=== PATIENT | female | born 1985 | race Caucasian/White ===

== ENCOUNTER → 2021-05-17 | Outpatient (CLI) | payer OTHER ==
--- NOTE | 2021-05-17 12:19 | MR ---
EXAMINATION TYPE: MR knee RT wo con DATE OF EXAM: 05/17/2021 COMPARISON: Outside right knee x-ray April 26, 2021 HISTORY: RIGHT KNEE PAIN inner aspect with swelling for months per patient TECHNIQUE: Multiplanar, multisequence imaging of the right knee is performed without IV contrast. FINDINGS: Exam slightly suboptimal as patient unable to hold still. MEDIAL MENISCUS: Horizontal signal posterior aspect posterior horn does not extend to articular surfa ce. LATERAL MENISCUS: Anterior and posterior horns are intact without tear. CRUCIATE LIGAMENTS: The anterior and posterior cruciate ligaments are intact and unremarkable. COLLATERAL LIGAMENTS: The medial collateral ligament and lateral collateral ligament complex are inta ct and unremarkable. EXTENSOR MECHANISM: Visualized quadriceps and patellar tendons are intact. EFFUSION: No significant suprapatellar joint effusion. POPLITEAL CYST: No popliteal/richard cyst. TRICOMPARTMENT SPACES: Tricompartment joint spaces are maintained. No significant spurring. CARTILAGE: The tricompartmental articular cartilage is preserved. BONE MARROW SIGNAL: Heterogeneity consistent with red marrow reconversion. No suspicious focal edema. OTHER: No additional significant abnormality is appreciated. IMPRESSION: Possible horizontal intrasubstance tear posterior aspect posterior horn medial meniscus. No full-thickness meniscal or ligamentous tear.
== END | disposition home or self-care (01) ==
LOC: RADMRIMAIN 10:52
PROVIDERS: ATTEND Orthopaedic Surgery
DX: M25.561 Pain in right knee (principal); M79.89 Other specified soft tissue disorders

== ENCOUNTER → 2021-07-05 | Outpatient (CLI) | payer OTHER ==
[2021-07-05 10:01] LABS: Basophils # (A) 0.1 k/uL (0-0.2); Basophils % (A) 1 %; Eosinophils # (A) 0.2 k/uL (0-0.7); Eosinophils % (A) 2 %; HCT 45.3 % (34.0-46.0); HGB 15.4 gm/dL (11.4-16.0); Lymphocytes # (A) 2.4 k/uL (1.0-4.8); Lymphocytes % (A) 29 %; MCH 31.1 pg (25.0-35.0); MCV 91.3 fL (80.0-100.0); Mean Platelet Volume 9.3; Monocytes # (A) 0.5 k/uL (0-1.0); Monocytes % (A) 6 %; Neutrophils # (A) 5.1 k/uL (1.3-7.7); Neutrophils % (A) 61 %; Platelet Count 197 k/uL (150-450); RBC 4.97 m/uL (3.80-5.40); RDW 12.2 % (11.5-15.5); WBC 8.4 k/uL (3.8-10.6)
[2021-07-05 10:08] LABS: Potassium 4.3 mmol/L (3.5-5.1)
== END | disposition home or self-care (01) ==
LOC: LABPAT 09:05
PROVIDERS: ATTEND Orthopaedic Surgery
DX: Z01.812 Encounter for preprocedural laboratory examination (principal); M23.91 Unspecified internal derangement of right knee
CPT/HCPCS: 80051; 81025; 85025

== ENCOUNTER 2021-07-14 14:28 | Day surgery (SDC) | payer OTHER ==
[2021-07-12 11:50] VITALS: BMI 29.2
--- NOTE | 2021-07-13 17:49 | HP ---
HISTORY AND PHYSICAL DATE OF SURGERY: 07/14/2021 Paulina Gibbs is a 36-year-old patient seen with progressive right knee pain. We discussed options for treatment. She elected to proceed with right knee arthroscopy. Consent was obtained. PAST MEDICAL HISTORY: Anxiety. PAST SURGICAL HISTORY: Left knee arthroscopy. DAILY MEDICATIONS: Motrin. ALLERGIES: NONE. SOCIAL HISTORY: She smokes half a pack of cigarettes daily. PHYSICAL EVALUATION OF THE RIGHT KNEE: Range of motion is negative 2/3 to 115. Mild effusion. Tenderness, medial joint line. Positive medial Buck's. Ligaments stable. Hip rotation without pain. Distal neurovascular exam intact. Right knee radiographs revealed mild osteoarthritis. MRI right knee revealed medial meniscal tear. IMPRESSION: Internal derangement of right knee with medial meniscal tear. PLAN: Right knee arthroscopy with partial meniscectomy and debridement. MMVAHE / IRAN: [id number] /
[~2021-07-14 14:28] MED LIST: DEXAMETHASONE SOD PHOSPHATE 4 MG/ML 1 ML VIAL IV ONE; KETOROLAC 15 MG/ML 1 ML VIAL IVP SCH; LACTATED RINGERS 1,000 ML IV SCH; LIDOCAINE 1% (10MG/ML) FOR IV START INTRADERMA PRN; METOCLOPRAMIDE 5 MG/ML 2 ML VIAL IVP PRN; MIDAZOLAM 2 MG/2 ML VIAL IV PRN; ONDANSETRON 4 MG/2 ML VIAL IVP ONE; SCOPOLAMINE 1.5MG/72HR PATCH TRANSDERM ONE
[2021-07-14] MEDS ORDERED: LACTATED RINGERS 1,000 ML IV ONE (14:59)
[2021-07-14] MEDS ORDERED: .fentaNYL (PF) 50 MCG/ML 2 ML AMP ONE (16:37)
[2021-07-14] MEDS ORDERED: MIDAZOLAM 2 MG/2 ML VIAL ONE (16:37)
[2021-07-14] MEDS ORDERED: PROPOFOL 10 MG/ML 20 ML VIAL IV ONE (16:37)
[2021-07-14] MEDS ORDERED: KETOROLAC 15 MG/ML 1 ML VIAL ONE (16:37)
[2021-07-14] MEDS ORDERED: HYDROmorphone (PF) 1 MG/ML ONE (16:37)
[2021-07-14] MEDS ORDERED: LIDOCAINE 1% INJ 10MG/ML (20 ML MDV) ONE (16:37)
[2021-07-14] MEDS ORDERED: BUPIVACAINE (PF) 0.25% 30 ML VIAL INTRAARTIC ONE ×2 (16:55→17:05)
[2021-07-14 17:19] VITALS: RESP 16; TEMP 96.8
--- NOTE | 2021-07-14 17:20 | P.OP ---
Date of Procedure: 07/14/21 Preoperative Diagnosis: Internal derangement right knee Postoperative Diagnosis: 1. Tear medial meniscus right knee 2. Reactive synovitis medial, lateral and suprapatellar compartments right knee Procedure(s) Performed: 1. Arthroscopic partial medial meniscectomy right knee 2. Arthroscopic partial synovectomy medial, lateral and suprapatellar compartments right knee Anesthesia: VIDALA, local Surgeon: Alexander Canchola Estimated Blood Loss (ml): 5 Pathology: none sent Condition: stable Disposition: PACU Indications for Procedure: 36-year-old patient seen with progressive right knee pain. After having treatment options discussed, she elected to proceed with arthroscopy. Operative Findings: See description of procedure Description of Procedure: Patient was taken to the operative suite. Patient underwent a general a nesthetic by the department of anesthesia. Patient was given preoperative antibiotics. The right lower extremity was placed in a well-padded arthroscopic leg gallegos. The right leg was prepped and draped in the normal sterile orthopedic fashion. A lateral parapatellar and suprapatellar incision was made. Trochars were inserted. Arthroscopy was initiated. Suprapatellar pouch revealed diffuse thick reactive synovitis. The patellofemoral joint appeared to articulate congruently. There was grade 1 chondromalacia of the patella with no significant osteochondral tear present. The scope was guided into the medial gutter. No loose bodies or plica were identified. The scope was then guided into the medial compartment. A medial parapatellar incision was made. Trocar inserted followed by probe. There was a radial tear posterior horn medial meniscus. There was no significant chondromalacia present. There was some thick reactive synovitis anteriorly. I performed a partial medial meniscectomy. I performed a partial synovectomy. Shaver was removed. The residual meniscus appeared stable. There was good decompression of the synovitis. Scope and probe were then guided into the intercondylar notch. Cruciates were identified, probed and found to be stable. The scope and probe were then guided into lateral compartment. There was some thick reactive synovitis anteriorly. The lateral meniscus was probed and found to be stable. There was no chondromalacia present. I introduced a motorized shaver and I performed a partial synovectomy. The shaver was removed. There was good decompression of the synovitis. The scope was in guided back into the suprapatellar compartment. I introduced a motorized shaver into the suprapatellar compartment. I performed a partial synovectomy. Shaver was removed. There was good decompression of the synovitis. I now took one more look around the entire knee, no residual debris. Instruments were now removed from the joint. The joint was infiltrated with .25% Marcaine. Steri-Strips were applied to the portal sites. Sterile dressings were applied. The patient was placed into a STAS hose. No tourniquet was utilized. The patient was awakened, transferred to a bed and taken to recovery stable satisfactory condition.
[2021-07-14] MEDS: HYDROmorphone 0.5 MG/0.5 ML SYRINGE IVP PRN ×3 (17:23→17:45)
[2021-07-14 18:51] VITALS: BP 137/86; PULSE 57
== END 2021-07-14 19:04 | disposition home or self-care (01) ==
LOC: OR 14:28
PROVIDERS: ATTEND Orthopaedic Surgery
DX: M23.203 Derangement of unspecified medial meniscus due to old tear or injury, right knee (principal); M65.861 Other synovitis and tenosynovitis, right lower leg; F41.9 Anxiety disorder, unspecified; F17.210 Nicotine dependence, cigarettes, uncomplicated; Z98.890 Other specified postprocedural states; Z79.1 Long term (current) use of non-steroidal anti-inflammatories (NSAID)
CPT/HCPCS: 81025; 29881; 29876; J2250; J1100; J0690; J2405; J2001; J3010; J1170 ×2; J1885; J2704

== ENCOUNTER 2022-02-09 16:12 | Emergency (ER) | payer OTHER ==
[2022-02-09] MEDS ORDERED: SODIUM CHLORIDE 0.9% 1,000 ML IV STA (16:41)
[2022-02-09] MEDS ORDERED: KETOROLAC 15 MG/ML 1 ML VIAL IVP STA (16:59)
--- NOTE | 2022-02-09 17:08 | ED ---
Chest Pain HPI - General Chief Complaint: Chest Pain Stated Complaint: chest pain Time Seen by Provider: 02/09/22 16:24 Source: patient Mode of arrival: ambulatory Limitations: no limitations - History of Present Illness Initial Comments: Patient is a 36-year-old female presenting with chief complaint of chest pain. Patient states that on 02/03, she began experiencing a pressure sensation on the left side of her chest, she describes it as "it feels like someone is sitting on my chest". She states that after 3 hours the pain dissipated. She states that today while at work the pain returned. Patient is mainly complaining of sharp pain located on the lateral side of the chest. She states that the side pain is worse with deep breathing. She states that she was profusely sweating today. She admits to a several year history of smoking. She admits to cough and congestion for the last 2 days. She denies nausea, vomiting, abdominal pain, headache, vision or hearing changes, dizziness, syncope, history of CO. - Related Data Home Medications Medication Instructions Recorded Confirmed PARoxetine [Paxil] 20 mg PO DAILY 02/09/22 02/09/22 QUEtiapine [SEROquel] 12.5 mg PO HS 02/09/22 02/09/22 Allergies Allergy/AdvReac Type Severity Reaction Status Date / Time No Known Allergies Allergy Verified 02/09/22 17:39 Review of Systems ROS Statement: Those systems with pertinent positive or pertinent negative responses have been documented in the HPI. ROS Other: All systems not noted in ROS Statement are negative. EKG Findings - EKG Comments: EKG Findings:: Sinus rhythm. Rate 85. NE interval 135. QRS 104. QTC 391. There is borderline right axis deviation. No acute ST or T-wave changes. Past Medical History Past Medical History: No Reported History, Musculoskeletal Disorder History of Any Multi-Drug Resistant Organisms: None Reported Past Surgical History: Hernia Repair, Orthopedic Surgery, Tubal Ligation Additional Past Surgical History / Comment(s): left knee arthroscopy Past Anesthesia/Blood Transfusion Reactions: No Reported Reaction Past Psychological History: No Psychological Hx Reported Smoking Status: Current every day smoker - Past Family History Mother Family Medical History: No Reported History General Exam Limitations: no limitations General appearance: alert, in no apparent distress Head exam: Present: atraumatic, normocephalic, normal inspection Eye exam: Present: normal appearance, EOMI. Absent: scleral icterus, periorbital swelling Neck exam: Present: normal inspection Respiratory exam: Present: normal lung sounds bilaterally. Absent: respiratory distress, wheezes, rales, rhonchi, stridor Cardiovascular Exam: Present: regular rate, normal rhythm, normal heart sounds. Absent: systolic murmur, diastolic murmur, rubs, gallop, clicks Back exam: Present: normal inspection Neurological exam: Present: alert, oriented X3, CN II-XII intact Psychiatric exam: Present: normal affect, normal mood Skin exam: Present: warm, dry, intact, normal color. Absent: rash Course Vital Signs 02/09/22 02/09/22 02/09/22 16:15 18:00 19:25 Temperature 98.1 F 98.0 F 98.0 F Pulse Rate 87 65 65 Respiratory 18 20 18 Rate Blood Pressure 123/76 117/79 128/86 O2 Sat by Pulse 98 99 99 Oximetry Chest Pain [facility] Patient is a 36-year-old female presenting with chief complaint of chest pain. Patient states that it started while at work today, it originates on the lateral portion of the left side of the chest, occasionally wraps around to the front. Admits to worsening pain with deep breath. On examination it is painful to palpation. Heart and lungs are clear to auscultation. CBC, CMP, PT/INR, troponin are all WNL. Urine appears contaminated. Patient tested negative for coronavirus and influenza. Chest x-ray shows no acute cardiopulmonary process. EKG shows sinus rhythm with no acute ST or T-wave changes. Heart score is 2 and PERC score is 0. Patient was given Toradol and Decadron. She reports improvement of pain. She appears stable for discharge with outpatient follow-up at this time. Educated on supportive treatment with Motrin and Tylenol. Follow-up with PCP in one to 2 days. Report back to ER with any new or worsening symptoms. Patient conveyed verbal understanding and agreed to the plan. I discussed this case with my attending Dr. Mukherjee Disposition Clinical Impression: Chest wall pain Disposition: HOME SELF-CARE Condition: Good Instructions (If sedation given, give patient instructions): Chest Pain (ED), Costochondritis (ED) Additional Instructions: Follow-up with PCP 1-2 days. Report back to ER with any new or worsening symptoms. Take Motrin and Tylenol as needed for pain control. Heat or ice to the area may be helpful in alleviating pain. Is patient prescribed a controlled substance at d/c from ED?: No Referrals: Bishop Clark MD [Primary Care Provider] - 1-2 days Time of Disposition: 19:06
--- NOTE | 2022-02-09 17:22 | XR ---
EXAMINATION TYPE: XR chest 2V DATE OF EXAM: 02/09/2022 COMPARISON: 12/13/2015 HISTORY: Chest pain TECHNIQUE: Frontal and lateral views of the chest are obtained. FINDINGS: There is no focal air space opacity. No evidence for pneumothorax. No pleural effusion. The cardiac silhouette size is within normal limits. The osseous structures are grossly intact. IMPRESSION: 1. No acute cardiopulmonary process.
[2022-02-09 17:26] LABS: Basophils # (A) 0.1 k/uL (0-0.2); Basophils % (A) 2 %; Eosinophils # (A) 0.2 k/uL (0-0.7); Eosinophils % (A) 2 %; HCT 43.7 % (34.0-46.0); HGB 14.3 gm/dL (11.4-16.0); Lymphocytes # (A) 2.8 k/uL (1.0-4.8); Lymphocytes % (A) 29 %; MCH 30.6 pg (25.0-35.0); MCHC 32.7 g/dL (31.0-37.0); MCV 93.7 fL (80.0-100.0); Mean Platelet Volume 9.3; Monocytes # (A) 0.5 k/uL (0-1.0); Monocytes % (A) 5 %; Neutrophils # (A) 5.8 k/uL (1.3-7.7); Neutrophils % (A) 61 %; Platelet Count 216 k/uL (150-450); RBC 4.66 m/uL (3.80-5.40); RDW 12.7 % (11.5-15.5); WBC 9.5 k/uL (3.8-10.6)
[2022-02-09 17:35] LABS: ALT 22 U/L (4-34); AST 28 U/L (14-36); African American GFR (CKD) >90 (>60 ml/min/1.73 sqM); Albumin 4.3 g/dL (3.5-5.0); Alkaline Phosphatase 103 U/L (38-126); Amylase 36 U/L (30-110); Anion Gap 4 mmol/L; Blood Urea Nitrogen 11 mg/dL (7-17); Calcium 9.8 mg/dL (8.4-10.2); Carbon Dioxide 24 mmol/L (22-30); Chloride 107 mmol/L (98-107); Glucose 95 mg/dL (74-99); Lipase 113 U/L (23-300); Magnesium 1.9 mg/dL (1.6-2.3); Non-African American GFR(CKD) 85 (>60 ml/min/1.73 sqM); Potassium 3.8 mmol/L (3.5-5.1); Sodium 135 mmol/L (137-145); Total Bilirubin 0.6 mg/dL (0.2-1.3); Total Protein 7.3 g/dL (6.3-8.2)
[2022-02-09 17:51] LABS: Appearance,Urine Cloudy (Clear); Bilirubin,Urine Negative (Negative); Blood,Urine Negative (Negative); Color,Urine Yellow; Glucose,Urine (UA) Negative (Negative); Hyaline Casts,Urine 1 /lpf (0-2); Ketones,Urine Trace (Negative); Leukocyte Esterase,Urine Trace (Negative); Mucus,Urine Few /hpf; Nitrite,Urine Negative (Negative); Protein,Urine 1+ (Negative); RBC,Urine 1 /hpf (0-5); Specific Gravity,Urine 1.029 (1.001-1.035); Squamous Epithelial Cell,Urine 21 /hpf (0-4); WBC,Urine 7 /hpf (0-5)
[2022-02-09 17:56] LABS: INR 1.1 (<1.2); Partial Thromboplastin Time 25.5 sec (22.0-30.0); Prothrombin Time 11.4 sec (9.0-12.0)
[2022-02-09] MEDS ORDERED: DEXAMETHASONE SOD PHOSPHATE 4 MG/ML 1 ML VIAL IVP STA (18:11)
[2022-02-09 19:04] VITALS: PULSE 65; TEMP 98
[2022-02-09 19:31] VITALS: BP 128/86; RESP 18
== END 2022-02-09 19:25 | disposition home or self-care (01) ==
LOC: EC 16:12
DX: R07.89 Other chest pain (principal); F17.200 Nicotine dependence, unspecified, uncomplicated
CPT/HCPCS: 36415; 93005; 80053; 82150; 83690; 83735; 84484; 85025; 85610; 85730; 81001; 87502; 87635; 71046; 99285; 96374; 96361; 96375; J1100; J1885

== ENCOUNTER 2024-02-19 16:28 | Emergency (ER) | payer OTHER ==
[2024-02-19 16:41] VITALS: RESP 18
--- NOTE | 2024-02-19 16:43 | ED ---
General Adult HPI - General Source: patient Mode of arrival: wheelchair Limitations: no limitations <Stacy Alcazar - Last Filed: 02/19/24 16:42> - General Source: RN notes reviewed, old records reviewed Mode of arrival: wheelchair Limitations: no limitations - History of Present Illness -: days(s) Location: head, face, neck, chest, back, abdomen Consistency: intermittent Improves with: none Worsens with: none Associated Symptoms: shortness of breath Treatments Prior to Arrival: NSAID <Fox Conti - Last Filed: 02/26/24 03:05> - General Stated complaint: Fever-Sent by PCP Time Seen by Provider: 02/19/24 16:42 - History of Present Illness Initial comments: Quick note: 38-year-old female presenting with chief complaint of bodyaches, headache, chills. Patient states that symptoms started last night. She is complaining of pain to the bilateral thighs. (Stacy Alcazar) This is a 38-year-old female to ER for headache body aches pains chills chest pain shortness of breath. (Fox Conti) - Related Data Home Medications Medication Instructions Recorded Confirmed PARoxetine [Paxil] 20 mg PO DAILY 02/09/22 02/09/22 QUEtiapine [SEROquel] 12.5 mg PO HS 02/09/22 02/09/22 Allergies Allergy/AdvReac Type Severity Reaction Status Date / Time No Known Allergies Allergy Verified 02/19/24 16:40 Review of Systems ROS Other: All systems not noted in ROS Statement are negative. <Stacy Alcazar - Last Filed: 02/19/24 16:42> ROS Other: All systems not noted in ROS Statement are negative. <Fox Conti - Last Filed: 02/26/24 03:05> ROS Statement: Those systems with pertinent positive or pertinent negative responses have been documented in the HPI. Past Medical History Past Medical History: No Reported History, Musculoskeletal Disorder History of Any Multi-Drug Resistant Organisms: None Reported Past Surgical History: Hernia Repair, Orthopedic Surgery, Tubal Ligation Additional Past Surgical History / Comment(s): left knee arthroscopy Past Anesthesia/Blood Transfusion Reactions: No Reported Reaction Past Psychological History: No Psychological Hx Reported Smoking Status: Current every day smoker - Past Family History Mother Family Medical History: No Reported History <Stacy Alcazar - Last Filed: 02/19/24 16:42> General Exam Limitations: no limitations <Stacy Alcazar - Last Filed: 02/19/24 16:42> General appearance: alert, in no apparent distress, anxious Head exam: Present: atraumatic, normocephalic, normal inspection Eye exam: Present: normal appearance, PERRL, EOMI. Absent: scleral icterus, conjunctival injection, periorbital swelling ENT exam: Present: normal exam, mucous membranes moist Neck exam: Present: normal inspection. Absent: tenderness, meningismus, lymphadenopathy Respiratory exam: Present: normal lung sounds bilaterally. Absent: respiratory distress, wheezes, rales, rhonchi, stridor Cardiovascular Exam: Present: regular rate, normal rhythm, normal heart sounds. Absent: systolic murmur, diastolic murmur, rubs, gallop, clicks GI/Abdominal exam: Present: soft, normal bowel sounds. Absent: distended, tenderness, guarding, rebound, rigid Extremities exam: Present: normal inspection, full ROM, normal capillary refill. Absent: tenderness, pedal edema, joint swelling, calf tenderness Back exam: Present: normal inspection Neurological exam: Present: alert, oriented X3, CN II-XII intact Psychiatric exam: Present: normal affect, normal mood Skin exam: Present: warm, dry, intact, normal color. Absent: rash <Fox Conti - Last Filed: 02/26/24 03:05> - General Exam Comments Initial Comments: Visual Physical Exam Vital signs reviewed General: Well-appearing, nontoxic, no acute distress. Head: Normocephalic, atraumatic Eyes: PERRLA, EOMI ENT: Airway patent Chest: Nonlabored breathing Skin: No visual rash, normal skin tone Neuro: Alert and oriented 3 Musculoskeletal: No gross abnormalities (Stacy Alcazar) Course <Fox Conti - Last Filed: 02/26/24 03:05> Vital Signs 02/19/24 02/19/24 16:37 21:55 Temperature 98.8 F 98.6 F Pulse Rate 102 H 98 Respiratory 18 18 Rate Blood Pressure 125/85 122/83 O2 Sat by Pulse 98 98 Oximetry - Reevaluation(s) Reevaluation #1: Medical records reviewed (Fox Conti) Reevaluation #2: Patient symptoms improved (Fox Conti) Reevaluation #3: Informed of results and questions answered (Fox Conti) Reevaluation #4: Was pt. sent in by a medical professional or institution (, GRADY, BANK ADVISOR, urgent care, hospital, or long-term...) When possible be specific @ -no Did you speak to anyone other than the patient for history (EMS, parent, family, police, friend...)? What history was obtained from this source @ -no Did you review nursing and triage notes (agree or disagree)? Why? @ -agree Are old charts reviewed (outside hosp., previous admission, EMS record, old EKG, old radiological studies, urgent care reports/EKG's, long-term records)? Report findings @ -yes Differential Diagnosis (chest pain, altered mental status, abdominal pain women, abdominal pain men, vaginal bleeding, weakness, fever, dyspnea, syncope, headache, dizziness, GI bleed, back pain, seizure, CVA, palpatations, mental health, musculoskeletal)? @ -prior EKG interpreted by me (3pts min.). @ -no X-rays interpreted by me (1pt min.). @ -yes negative for acute disease CT interpreted by me (1pt min.). @ -no U/S interpreted by me (1pt. min.). @ -no What testing was considered but not performed or refused? (CT, X-rays, U/S, labs)? Why? @ -none What meds were considered but not given or refused? Why? @ -none Did you discuss the management of the patient with other professionals (professionals i.e. GRADY Sims, BANK ADVISOR, lab, RT, psych nurse, director of social media marketing, car ferry master, teacher, public records officer, piano case maker)? Give summary @ -no Was smoking cessation discussed for >3mins.? @ -no Was critical care preformed (if so, how long)? @ -no Were there social determinants of health that impacted care today? How? (Homelessness, low income, unemployed, alcoholism, drug addiction, transportation, low edu. Level, literacy, decrease access to med. care, custodial, rehab)? @ -none Was there de-escalation of care discussed even if they declined (Discuss DNR or withdrawal of care, Hospice)? DNR status @ -no What co-morbidities impacted this encounter? (DM, HTN, Smoking, COPD, CAD, Cancer, CVA, ARF, Chemo, Hep., AIDS, mental health diagnosis, sleep apnea, morbid obesity)? @ -none Was patient admitted / discharged? Hospital course, mention meds given and route, prescriptions, significant lab abnormalities, going to OR and other pertinent info. @ - 38 Female for otherwise not feeling well. Patient was found to have coronavirus here in the ER can be discharged home Discharge Undiagnosed new problem with uncertain prognosis? @ -no Drug Therapy requiring intensive monitoring for toxicity (Heparin, Nitro, Insulin, Cardizem)? @ -no Were any procedures done? @ -no Diagnosis/symptom? @ -Coronavirus Acute, or Chronic, or Acute on Chronic? @ -Acute Uncomplicated (without systemic symptoms) or Complicated (systemic symptoms)? @ -Complicated Side effects of treatment? @ -no Exacerbation, Progression, or Severe Exacerbation? @ -exacerbation Poses a threat to life or bodily function? How? (Chest pain, [place], [place], pneumonia, PE, COPD, DKA, ARF, appy, cholecystitis, CVA, Diverticulitis, Homicidal, Suicidal, threat to staff... and all critical care pts) @ -yes with COVID (Fox Conti) Reevaluation #5: Differential Fever: Pneumonia, viral URI, endocarditis, myocarditis, pericarditis, otitis, sinusitis, peritonsillar Abscess, retropharyngeal Abscess, epiglottitis, peritonitis, appendicitis, Marsha cystitis, diverticulitis, hepatitis, colitis, UTI, PID, TOA, pyelonephritis, prostatitis, epididymitis, meningitis, encephalitis, pulmonary embolism, CVA, thyroid storm, pancreatitis, adrenal crisis, cavernous sinus thrombosis, this is not meant to be an all-inclusive list. (Fox Conti) Medical Decision Making <Stacy Alcazar - Last Filed: 02/19/24 16:42> - Lab Data Result diagrams: 02/19/24 18:17 <Fox Conti - Last Filed: 02/26/24 03:05> - Medical Decision Making I performed the quick note portion of this visit, electronically signed Stacy Alcazar PA-C (Stacy Alcazar) 38 Female for otherwise not feeling well. Patient was found to have coronavirus here in the ER can be discharged home (Fox Conti) - Lab Data Lab Results 02/19/24 02/19/24 Range/Units 18:17 20:30 WBC 5.8 (3.8-10.6) k/uL RBC 5.08 (3.80-5.40) m/uL Hgb 15.7 (11.4-16.0) gm/dL Hct 47.5 H (34.0-46.0) % MCV 93.5 (80.0-100.0) fL MCH 30.9 (25.0-35.0) pg MCHC 33.0 (31.0-37.0) g/dL RDW 12.9 (11.5-15.5) % Plt Count 199 (150-450) k/uL MPV 9.5 Neutrophils % 69 % Lymphocytes % 16 % Monocytes % 11 % Eosinophils % 1 % Basophils % 1 % Neutrophils # 4.0 (1.3-7.7) k/uL Lymphocytes # 1.0 (1.0-4.8) k/uL Monocytes # 0.6 (0-1.0) k/uL Eosinophils # 0.1 (0-0.7) k/uL Basophils # 0.1 (0-0.2) k/uL Influenza Type A (PCR) Not Detected (Not Detectd) Influenza Type B (PCR) Not Detected (Not Detectd) RSV (PCR) Not Detected (Not Detectd) SARS-CoV-2 (PCR) Detected A (Not Detectd) Disposition <Stacy Alcazar - Last Filed: 02/19/24 16:42> Is patient prescribed a controlled substance at d/c from ED?: No Time of Disposition: 21:30 <Fox Conti - Last Filed: 02/26/24 03:05> Clinical Impression: Coronavirus infection, Fever Disposition: HOME SELF-CARE Condition: Good Instructions (If sedation given, give patient instructions): Coronavirus Disease 2019 (COVID-19), Fever in Adults (ED) Referrals: Bishop Clark MD [Primary Care Provider] - 1-2 days
[2024-02-19 18:50] LABS: Basophils # (A) 0.1 k/uL (0-0.2); Basophils % (A) 1 %; Eosinophils # (A) 0.1 k/uL (0-0.7); Eosinophils % (A) 1 %; HCT 47.5 % (34.0-46.0); HGB 15.7 gm/dL (11.4-16.0); Lymphocytes % (A) 16 %; MCH 30.9 pg (25.0-35.0); MCV 93.5 fL (80.0-100.0); Mean Platelet Volume 9.5; Monocytes # (A) 0.6 k/uL (0-1.0); Monocytes % (A) 11 %; Neutrophils % (A) 69 %; Platelet Count 199 k/uL (150-450); RBC 5.08 m/uL (3.80-5.40); RDW 12.9 % (11.5-15.5); WBC 5.8 k/uL (3.8-10.6)
[2024-02-19] MEDS: ONDANSETRON ODT 4 MG TAB PO STA (21:42)
[2024-02-19] MEDS: KETOROLAC 15 MG/ML 1 ML VIAL IM STA (21:43)
[2024-02-19] MEDS: dexAMETHasone 2 MG TAB PO STA (21:48)
[2024-02-19] MEDS: ACETAMINOPHEN TAB 500 MG TAB PO STA (21:48)
[2024-02-19] MEDS: IBUPROFEN 400 MG TAB PO STA (21:50)
[2024-02-19 21:56] VITALS: BP 122/83; PULSE 98; TEMP 98.6
== END 2024-02-19 21:56 | disposition home or self-care (01) ==
LOC: EC 16:28
DX: R50.9 Fever, unspecified (principal); B97.29 Other coronavirus as the cause of diseases classified elsewhere; F17.200 Nicotine dependence, unspecified, uncomplicated
CPT/HCPCS: 36415; 85025; 87636; 99283; 96372; J8540; J1885

== ENCOUNTER → 2024-05-14 | Outpatient (CLI) | payer OTHER ==
--- NOTE | 2024-05-15 20:03 | MM ---
Reason for Exam: Screening (asymptomatic). Patient History: Menarche at age 11. First Full-Term at age 19. Premenopausal. Maternal cousin had breast cancer, age 40. Risk Values: Yris 5 year model risk: 0.5%. NCI Lifetime model risk: 9.0%. Tissue Density: The breasts are heterogeneously dense, which may obscure small masses. Findings: Analyzed By CAD. There are areas of asymmetric density in the right breast that may represent superimposition shadow but further evaluation is recommended. Otherwise, no suspicious microcalcification or other discrete abnormality is seen. Overall Assessment: Incomplete: need additional imaging evaluation, BI-RAD 0 Management: Special View Mammogram of the right breast. [facility] will attempt to contact patient to return for supplemental views and ultrasound if indicated. [facility], , 05/15/2024 8:00 PM. Electronically signed and approved by: Ted Joseph M.D. Radiologist
== END | disposition home or self-care (01) ==
LOC: RADMAMWWP 08:03
PROVIDERS: ATTEND Family Medicine
CPT/HCPCS: 77067

== ENCOUNTER → 2024-05-22 | Outpatient (CLI) | payer OTHER ==
--- NOTE | 2024-05-22 08:59 | MM ---
Reason for Exam: Additional evaluation requested from abnormal screening. Last screening mammogram was performed less than 1 month ago. Patient History: Menarche at age 11. First Full-Term at age 19. Premenopausal. Maternal cousin had breast cancer, age 40. Last menstrual period: 05/08/2024 Risk Values: Yris 5 year model risk: 0.5%. NCI Lifetime model risk: 9.0%. Prior Study Comparison: 05/14/2024 Bilateral MG screening mammo w CAD, [facility]. Tissue Density: Right: The breasts are heterogeneously dense, which may obscure small masses. Findings: Analyzed By CAD. There remains small asymmetry measuring 2.5-3 mm at 6.2 cm from nipple in the lateral aspect on CC view middle depth. Overall Assessment: Probably benign, BI-RAD 3 Management: Diagnostic Mammogram of the right breast in 3 months. Results were given to the patient verbally at the time of exam. Patient should continue monthly self-breast exams. A clinical breast exam by your physician is recommended on an annual basis. This exam should not preclude additional follow-up of suspicious palpable abnormalities. Note on Yris scores and lifetime risk: 1. A Yris score greater than 3% is considered moderate risk. If this is the case, consider specialist referral to assess eligibility for a risk reducing agent. 2. If overall lifetime risk for the development of breast cancer is 20% or higher, the patient may qualify for future screening with alternating mammogram and breast MRI. [facility], , 05/22/2024 8:56 AM. Electronically signed and approved by: Theo Navarro DO
== END ==
LOC: RADMAMWWP 08:29
PROVIDERS: ATTEND Family Medicine
CPT/HCPCS: 77061; 77065